=== PATIENT | female | born 1990 | race American Indian/Alaskan Native ===

== ENCOUNTER 2019-04-18 12:37 | Emergency (ER) | payer SELFPAY ==
[2019-04-18 13:09] VITALS: BP 136/86
--- NOTE | 2019-04-18 13:14 | Event Note ---
ED Screening Note Date of service: 04/18/19 Time: 13:10 ED Screening Note: 28 y/o female comes in for vaginal spotting after her normal menses. Light pelvic cramping. This initial assessment/diagnostic orders/clinical plan/treatment(s) is/are subject to change based on patients health status, clinical progression and re- assessment by fellow clinical providers in the ED. Further treatment and workup at subsequent clinical providers discretion. Patient/guardian urged not to elope from the ED as their condition may be serious if not clinically assessed and managed. Initial orders include:
== END 2019-04-18 18:46 | disposition left against medical advice (07) ==
LOC: ED 12:37
DX: R10.2 Pelvic and perineal pain (principal); Z53.21 Procedure and treatment not carried out due to patient leaving prior to being seen by health care provider
CPT/HCPCS: 36415; 84702